=== PATIENT | female | born 1955 | race Caucasian/White ===

== ENCOUNTER 2017-11-28 14:14 | Inpatient (IN) | payer MEDICARE ==
[~2017-11-28] VITALS: Ht 165.1 cm; Wt 84.0 kg
[2017-11-28] MEDS ORDERED: SODIUM CHLORIDE 0.9% 500ML 500 ML IV STA (14:27)
[2017-11-28] MEDS ORDERED: ONDANSETRON HCL INJ 2 MG/ML VIAL IV PRN ×2 (14:30→16:45)
[2017-11-28 14:36] LABS: BASOPHILS % 0.4 % (0.0-1.0); EOSINOPHILS # (AUTO) 0.3 (0.0-0.4); EOSINOPHILS % 2.4 % (0.0-6.0); HEMATOCRIT 38.3 % (34.2-44.1); LYMPHOCYTES # (AUTO) 3.5 (1.0-3.2); LYMPHOCYTES % 32.3 % (18.0-39.1); MEAN CORPUSCULAR HGB CONC 33.9 g/dL (31-35); MEAN CORPUSCULAR VOLUME 88.5 fL (81-99); MONOCYTES # (AUTO) 0.7 (0.2-0.8); MONOCYTES % 6.1 % (4.4-11.3); NEUTROPHILS # (AUTO) 6.4 (2.1-6.9); NEUTROPHILS % 58.4 % (38.7-80.0); PLATELET COUNT 271 x10e3/uL (140-360); RED BLOOD COUNT 4.33 x10e6/uL (3.6-5.1); RED CELL DISTRIBUTION WIDTH 14.7 % (11.7-14.4)
[2017-11-28] MEDS ORDERED: METHYLPREDNISOLONE SOD SUCC 125 MG/2ML VIAL IV ONE (14:45)
[2017-11-28] MEDS ORDERED: FAMOTIDINE 20 MG/2 ML VIAL IV ONE (14:45)
[2017-11-28] MEDS ORDERED: ACETAMINOPHEN 325 MG TAB PO ONE (14:45)
[2017-11-28] MEDS ORDERED: DIPHENHYDRAMINE HCL INJ 50 MG/ML VIAL IV ONE (14:45)
[2017-11-28 14:51] LABS: ALBUMIN 3.6 g/dL (3.5-5.0); ALBUMIN/GLOBULIN RATIO 1.1 (0.8-2.0); ANION GAP 12.8 mmol/L (8-16); CALCIUM 9.4 mg/dL (8.4-10.2); CREATININE, SERUM 1.99 mg/dL (0.57-1.11); MAGNESIUM 2.1 MG/DL (1.3-2.1); POTASSIUM 3.8 mmol/L (3.5-5.1)
[2017-11-28 14:58] LABS: CREATINE KINASE MB 2.6 ng/mL (0-5.0)
--- NOTE | 2017-11-28 15:27 | Diagnostic Imaging Report ---
PROCEDURE: Frontal and lateral views of the chest. COMPARISON: None. INDICATIONS: weakness, edema FINDINGS: Lines/tubes: None. Lungs: The lungs are well inflated and clear. There is no evidence of pneumonia or pulmonary edema. Pleura: There is no pleural effusion or pneumothorax. Heart and mediastinum: The heart and the mediastinum are normal. Bones: No acute bony abnormality. IMPRESSION: 1. No acute cardiopulmonary abnormalities. Baldemar Kearns M.D. Dictated by: Baldemar Kearns M.D. on 11/28/2017 at 15:33 Electronically approved by: Baldemar Kearns M.D. on 11/28/2017 at 15:33
[2017-11-28] MEDS ORDERED: SODIUM CHLORIDE 0.9% 1000ML 1,000 ML IV STA (16:18)
[2017-11-28] MEDS ORDERED: DIPHENHYDRAMINE HCL 25 MG CAP PO PRN (16:45)
[2017-11-28] MEDS ORDERED: HYDROCORTISONE SOD SUCCINATE 100 MG VIAL IV NR (16:45)
[2017-11-28] MEDS ORDERED: LACTULOSE SYRUP 20 GM/30 ML UDC PO PRN (16:45)
[2017-11-28] MEDS ORDERED: DIPHENHYDRAMINE HCL INJ 50 MG/ML VIAL IV PRN (16:45)
[2017-11-28 16:48] LABS: BILIRUBIN,URINE NEGATIVE (NEGATIVE); CLARITY,URINE CLEAR (CLEAR); COLOR,URINE YELLOW (YELLOW); KETONES,URINE NEGATIVE (NEGATIVE); LEUKOCYTE ESTERASE ,URINE NEGATIVE (NEGATIVE); NITRITE,URINE NEGATIVE (NEGATIVE); PROTEIN,URINE DIPSTICK NEGATIVE (NEGATIVE); URINE UROBILINOGEN 0.2 mg/dL (0.2 - 1)
[2017-11-28 17:01] LABS: BACTERIA,URINE RARE /HPF; EPITHELIAL CELLS,URINE FEW /LPF; MUCUS,URINE FEW (RARE); RBC,URINE 0-5 /HPF (0-5)
[2017-11-28] MEDS ORDERED: LISINOPRIL-HCT1 EACH PO (17:05)
[2017-11-28] MEDS ORDERED: AMLODIPINE BESY10 MG PO (17:05)
[2017-11-28] MEDS: FAMOTIDINE 20 MG/2 ML VIAL IV SCH (17:25)
[2017-11-28 21:38] VITALS: BP 120/75
[2017-11-28] MEDS: SODIUM CHLORIDE 0.9% 1000ML 1,000 ML IV SCH (21:42)
[2017-11-28] MEDS: ACETAMINOPHEN 325 MG TAB PO PRN (21:45)
[2017-11-28 21:56] VITALS: BP 120/75
[2017-11-29] VITALS (7 sets, daily range): BP systolic 100–129; BP diastolic 55–83
[2017-11-29] MEDS: SODIUM CHLORIDE 0.9% 1000ML 1,000 ML IV SCH ×4 (00:38→21:28)
[2017-11-29 05:17] LABS: ANION GAP 12.1 mmol/L (8-16); CALCIUM 8.7 mg/dL (8.4-10.2); CREATININE, SERUM 1.72 mg/dL (0.57-1.11); MAGNESIUM 2.1 MG/DL (1.3-2.1); PHOSPHORUS 3.7 MG/DL (2.3-4.7); POTASSIUM 4.1 mmol/L (3.5-5.1)
[2017-11-29] MEDS: FAMOTIDINE 20 MG/2 ML VIAL IV SCH ×2 (08:14→16:42)
[2017-11-29] MEDS: ACETAMINOPHEN 325 MG TAB PO PRN ×3 (08:17→22:26)
[2017-11-29 14:39] LABS: FREE T4 (FREE THYROXINE) 0.73 ng/dL (0.9-1.8); THYROID STIMULATING HORMONE 2.579 uIU/mL (0.350-4.940)
--- NOTE | 2017-11-29 14:56 | Consultation ---
DATE OF CONSULTATION: November 28, 2017 ENDOCRINE CONSULTATION This is a patient of Dr. Tejeda. Thank you very much for referring this patient. This is a 62-year-old white female who is referred to me for evaluation of hypothyroidism. The patient came to the hospital because of dizziness while she was donating blood. At the time of admission, the patient was found to be dehydrated. She has a history of hypertension in the past. No history of thyroid problems in the past. During the hospital stay, the patient had a thyroid profile done which showed TSH was 7.54. No family history of thyroid disease. She does complain of dry skin and tiredness. PHYSICAL EXAMINATION GENERAL: Today, the patient is alert, awake, a little bit apprehensive. VITALS: Heart rate is around 60. Blood pressure 124/84 mmHg. HEENT: Examination is essentially unremarkable. Her thyroid is palpable 1-1/2 to 2 times normal size. No gross nodules are palpable. CHEST: Bilateral vesicular breathing. She has mild bronchospasm. CARDIAC: First and 2nd heart sounds. There is no 3rd or 4th heart sound. Ejection systolic murmur, grade 2/6. CLINICAL IMPRESSION 1. Hypothyroidism 2. Hypotension. 3. Acute renal insufficiency, probably related to prerenal azotemia. The plan at this time is to do a free T4, TSH, and antiperoxidase antibody and start her on a small dose of thyroid medications. Will start her on Synthroid 0.05 mg once daily. Thanks for referring this patient. I will be following this patient with you. Job#: [id number]
[2017-11-30] VITALS (8 sets, daily range): BP systolic 135–167; BP diastolic 65–88
[2017-11-30 04:49] LABS: BASOPHILS % 0.4 % (0.0-1.0); EOSINOPHILS # (AUTO) 0.3 (0.0-0.4); EOSINOPHILS % 3.7 % (0.0-6.0); HEMOGLOBIN 10.1 g/dL (12.0-16.0); LYMPHOCYTES # (AUTO) 3.4 (1.0-3.2); LYMPHOCYTES % 43.3 % (18.0-39.1); MEAN CORPUSCULAR HEMOGLOBIN 30.1 pg (28-32); MEAN CORPUSCULAR HGB CONC 32.6 g/dL (31-35); MEAN CORPUSCULAR VOLUME 92.3 fL (81-99); MONOCYTES # (AUTO) 0.6 (0.2-0.8); MONOCYTES % 7.1 % (4.4-11.3); NEUTROPHILS # (AUTO) 3.6 (2.1-6.9); NEUTROPHILS % 45.2 % (38.7-80.0); PLATELET COUNT 190 x10e3/uL (140-360); RED BLOOD COUNT 3.36 x10e6/uL (3.6-5.1); RED CELL DISTRIBUTION WIDTH 14.9 % (11.7-14.4)
[2017-11-30 05:31] LABS: FREE THYROXINE INDEX 1.4131 (1.4-3.8); THYROID STIMULATING HORMONE 8.514 uIU/mL (0.350-4.940)
[2017-11-30] MEDS: SODIUM CHLORIDE 0.9% 1000ML 1,000 ML IV SCH ×3 (05:42→20:25)
[2017-11-30] MEDS: LEVOTHYROXINE SODIUM 25 MCG TABLET PO SCH (05:42)
[2017-11-30] MEDS ORDERED: LEVOTHYROXINE SODIUM 50 MCG TAB PO SCH (06:00)
[2017-11-30] MEDS: FAMOTIDINE 20 MG/2 ML VIAL IV SCH ×2 (08:51→16:41)
[2017-11-30] MEDS: ACETAMINOPHEN 325 MG TAB PO PRN ×2 (13:45→22:14)
[2017-12-01 04:00] VITALS: BP 137/79
[2017-12-01 04:46] LABS: BASOPHILS % 0.5 % (0.0-1.0); EOSINOPHILS # (AUTO) 0.3 (0.0-0.4); EOSINOPHILS % 4.1 % (0.0-6.0); HEMATOCRIT 31.1 % (34.2-44.1); HEMOGLOBIN 10.3 g/dL (12.0-16.0); LYMPHOCYTES # (AUTO) 3.5 (1.0-3.2); LYMPHOCYTES % 46.7 % (18.0-39.1); MEAN CORPUSCULAR HEMOGLOBIN 30.1 pg (28-32); MEAN CORPUSCULAR HGB CONC 33.1 g/dL (31-35); MEAN CORPUSCULAR VOLUME 90.9 fL (81-99); MONOCYTES # (AUTO) 0.6 (0.2-0.8); MONOCYTES % 7.6 % (4.4-11.3); NEUTROPHILS % 40.8 % (38.7-80.0); PLATELET COUNT 194 x10e3/uL (140-360); RED BLOOD COUNT 3.42 x10e6/uL (3.6-5.1)
[2017-12-01 05:05] LABS: ANION GAP 9.1 mmol/L (8-16); CREATININE, SERUM 1.07 mg/dL (0.57-1.11); POTASSIUM 4.1 mmol/L (3.5-5.1)
[2017-12-01] MEDS: LEVOTHYROXINE SODIUM 25 MCG TABLET PO SCH (05:05)
[2017-12-01] MEDS: ACETAMINOPHEN 325 MG TAB PO PRN ×2 (05:07→11:15)
[2017-12-01 05:15] VITALS: BP 136/80
[2017-12-01 08:00] VITALS: BP 166/76
[2017-12-01 08:05] VITALS: BP 166/76
[2017-12-01] MEDS: FAMOTIDINE 20 MG/2 ML VIAL IV SCH (08:19)
[2017-12-01] MEDS ORDERED: SYNTHROID50 MCG PO (10:11)
[2017-12-01] MEDS ORDERED: FAMOTIDINE 20 MG TAB PO SCH (16:30)
== END 2017-12-01 13:24 | disposition home or self-care (01) | DRG 684 ==
LOC: ER 14:14 → ERHOLD 16:38 → MED/SURG2 21:11 → OBSVTOIN 11-30 15:24
DX: N17.0 Acute kidney failure with tubular necrosis (principal); E03.9 Hypothyroidism, unspecified; E86.0 Dehydration; I10 Essential (primary) hypertension; I95.9 Hypotension, unspecified
CPT/HCPCS: 36415; 71046; 80048; 80053; 81001; 82550; 82553; 83605; 83735; 83880; 84100; 84436; 84439; 84443; 84479; 84484; 85025; 85379; 86376; 87040; 87086; 93005; 96361; 99284; G0378; J1200; J1720; J2930; J7030; J7040